=== PATIENT | female | born 1970 ===

== ENCOUNTER → 2021-11-05 | Day surgery (SDC) | payer OTHER ==
[~2021-11-05] MED LIST: AMLODIPINE BESY10 MG PO; MULTIVITAMIN; PERCOCET 5/325 T1 EA PO; SENNA S TABLET1 EACH PO; ZEBETA 5 MG TAB5 MG PO
== END | disposition home or self-care (01) ==
LOC: OR 04:49
DX: K64.9 Unspecified hemorrhoids (principal); K60.2 Anal fissure, unspecified; K62.89 Other specified diseases of anus and rectum; I10 Essential (primary) hypertension; Z79.899 Other long term (current) drug therapy
CPT/HCPCS: J1100; J1170; J1885; J2001; J2250; J2405; J2704; J3010; J7120

== ENCOUNTER → 2022-02-09 | Outpatient (CLI) | payer OTHER | LOC: MAMO 13:08 | DX: Z12.31 Encounter for screening mammogram for malignant neoplasm of breast (principal) | CPT/HCPCS: 77063; 77067 ==

== ENCOUNTER → 2022-03-03 | Outpatient (CLI) | payer OTHER | LOC: MAMO 09:41 | DX: R92.8 Other abnormal and inconclusive findings on diagnostic imaging of breast (principal) | CPT/HCPCS: 76642-RT; 77065; G0279 ==